=== PATIENT | female | born 2000 | race Two or more races ===

== ENCOUNTER 2020-04-08 09:19 | Outpatient (CLI) | payer OTHER ==
[~2020-04-08] VITALS: Ht 160 cm; Wt 59.0 kg
== END 2020-04-08 10:30 | disposition home or self-care (01) ==
LOC: OFIC 805 09:19
PROVIDERS: ATTEND Otolaryngology Otology & Neurotology
DX: H92.03 Otalgia, bilateral (principal); J31.0 Chronic rhinitis; H73.21 Unspecified myringitis, right ear; H61.23 Impacted cerumen, bilateral